=== PATIENT | female | born 1975 | race Caucasian/White ===

== ENCOUNTER 2017-11-30 12:04 | Outpatient (REF) | payer MEDICAID, SELFPAY ==
[2017-11-30 19:02] LABS: HCT 39.2 % (36.0-46.0); HGB 13.6 g/dL (12.0-15.5); Mean Corp. HGB Concentration 34.7 g/dL (32.0-36.0); Mean Corpuscular Hemoglobin 31.3 pg (27.0-33.0); Mean Corpuscular Volume 90.1 fL (80-95); Mean Platelet Volume 10.5 fL (8.0-11.0); Platelet Count 266 x1000/uL (130-400); RBC 4.35 m/cumm (4.00-5.20); RBC Distribution Width 11.9 % (11.7-14.6); White Blood Cell Count 6.78 k/cumm (4.4-10.8)
[2017-11-30 19:17] LABS: Iron 87 ug/dL (50-175)
[2017-11-30 19:28] LABS: Ferritin 164 ng/mL (8-388)
[2017-12-04 14:02] LABS: IgA 175 mg/dL (85-499); Interpretation SEE COMMENTS; Tissue Transglutaminase IgA <1.2 U/mL (<4.0)
== END 2017-11-30 12:05 ==
LOC: NCHCN 12:04
PROVIDERS: PCP Nurse Practitioner Family; Visit Provider Nurse Practitioner Family
DX: R10.9 Unspecified abdominal pain (principal); K62.5 Hemorrhage of anus and rectum
CPT/HCPCS: 82784; 83516; 85027; 82728; 83540

== ENCOUNTER 2018-07-20 10:56 | Outpatient (REF) | payer MEDICAID, SELFPAY ==
[2018-07-20 19:31] LABS: Cholesterol 208 mg/dL (50-200); HDL Cholesterol 49 mg/dL (40-60); LDL CHOLESTEROL 137 mg/dL (<100); TSH (W/Ref FT4) 3.11 uIU/mL (0.358-3.74); Triglyceride 68 mg/dL (30-150)
[2018-07-20 19:33] LABS: Hemoglobin A1C 5.1 % (4.5-6.2)
== END 2018-07-20 11:16 ==
LOC: NCHCN 10:56
PROVIDERS: PCP Nurse Practitioner Family; Visit Provider Nurse Practitioner Family
DX: E03.9 Hypothyroidism, unspecified (principal)
CPT/HCPCS: 80061; 83721; 83036; 84443

== ENCOUNTER 2019-06-04 11:05 | Outpatient (REF) | payer MEDICAID, SELFPAY ==
[2019-06-04 19:16] LABS: Abs Immature Grans 0.02 k/cumm (0.0-0.09); Absolute Basophil Count 0.01 k/cumm (0.0-0.2); Absolute Eosinophil Count 0.14 k/cumm (0.0-0.7); Absolute Lymphocyte Count 1.48 k/cumm (1.2-3.4); Absolute Neutrophil Count 4.48 k/cumm (1.2-6.7); Basophils % 0.2; Eosinophils % 2.1; HCT 37.9 % (36.0-46.0); HGB 13.1 g/dL (12.0-15.5); Immature Grans % 0.3 %; Lymphocytes % 22.3; Mean Corp. HGB Concentration 34.6 g/dL (32.0-36.0); Mean Corpuscular Hemoglobin 31.3 pg (27.0-33.0); Mean Corpuscular Volume 90.5 fL (80-95); Mean Platelet Volume 10.5 fL (8.0-11.0); Monocytes % 7.5; Neutrophils % 67.6; Platelet Count 255 x1000/uL (130-400); RBC 4.19 m/cumm (4.00-5.20); RBC Distribution Width 12.4 % (11.7-14.6); White Blood Cell Count 6.63 k/cumm (4.4-10.8)
[2019-06-04 19:37] LABS: ALT 39 U/L (14-59); AST 22 U/L (15-37); Albumin 3.9 g/dL (3.4-5.0); Alkaline Phosphatase 62 U/L (46-116); Anion Gap 8.5 mmol/L (3-11); BUN 10 mg/dL (7-18); Bilirubin, Total 0.4 mg/dL (0.2-1.0); CO2 26.5 mmol/L (21.0-32.0); CREATININE 0.88 mg/dL (0.55-1.02); Calcium 8.8 mg/dL (8.5-10.1); Chloride 104 mmol/L (98-107); Glucose 83 mg/dL (74-106); Potassium 4.3 mmol/L (3.5-5.1); Sodium 139 mmol/L (136-145); Total Protein 6.8 g/dL (6.4-8.2)
== END 2019-06-04 11:25 ==
LOC: NCHCN 11:05
PROVIDERS: PCP Nurse Practitioner Family; Visit Provider Physician Assistant
DX: R22.0 Localized swelling, mass and lump, head (principal)
CPT/HCPCS: 80053; 85025

== ENCOUNTER 2024-04-09 09:41 | Outpatient (REF) | payer SELFPAY | END 2024-04-09 09:42 | disposition home or self-care (01) | LOC: NCHCN 09:41 | PROVIDERS: PCP Nurse Practitioner Family; Visit Provider Nurse Practitioner Family | DX: N89.8 Other specified noninflammatory disorders of vagina (principal) | CPT/HCPCS: 87480; 87510; 87660 ==

== ENCOUNTER 2025-02-19 20:38 | Outpatient (REF) | payer OTHER, SELFPAY ==
[2025-02-19 21:20] LABS: Abs Immature Grans 0.05 10^3/uL (0.0-0.06); HCT 40.6 % (36.0-46.0); HGB 13.8 g/dL (11.2-15.7); Immature Grans % 0.4 %; MCH 30.5 pg (27.0-33.0); MCHC 34.0 % (32.0-36.0); MCV 90 fL (80-95); MPV 11.3 fL (8.0-11.0); Platelet Count 234 10^3/uL (130-400); RBC 4.52 10^6/uL (3.93-5.22); RDW 11.9 % (11.7-14.6); RDW-SD 39.0 fL; WBC 14.28 10^3/uL (4.4-10.8)
== END 2025-02-19 20:39 | disposition home or self-care (01) ==
LOC: NCHCN 20:38
PROVIDERS: PCP Nurse Practitioner Family; Visit Provider Nurse Practitioner Family
DX: R68.83 Chills (without fever) (principal)
CPT/HCPCS: 85025